=== PATIENT | female | born 1980 | race Asian ===

== ENCOUNTER 2024-07-14 10:25 | Emergency (ER) | payer OTHER, SELFPAY ==
[2024-07-14 10:27] VITALS: BP 127/82
--- NOTE | 2024-07-14 11:05 | ED.MUSCINJ ---
HPI-Injury
General
Chief Complaint: Extremity Pain (non-traumatic)
Source: patient
Exam Limitations: none
Time Seen by Provider: 07/14/24 11:05
Nursing documentation reviewed up to this point in time: agreed with
History of Present Illness-Injury
Initial Injury comments:
43 yo female presents for left lower back pain and pain radiating down buttock to thigh, worsening over the past 4 days. Tylenol did not help, Ibuprofen, little help. No recollection of overuse or injury.
Denies fever, saddle numbness, loss of bowel or bladder control or weakness in legs.
Past History
Past History
ED Past Medical History: None
ED Past Surgical History: None
Social History
Tobacco: Non-smoker
Alcohol: None
Personal:
Living: with family
Employment: Not employed
Review of Systems
Review of Systems
Allergies reviewed?: Yes
All Other Systems: ROS reviewed and negative except as documented in HPI and ROS
Constitutional: Denies fever
Respiratory: Denies trouble breathing
Cardiac: Denies chest pain
ABD/GI: Denies abdominal pain or nausea
: Denies dysuria, frequency, incontinence or difficulty voiding
Musculoskeletal: Reports back pain (low back)
Skin: Reports no symptoms
Neurological: Reports other (pain radiates to buttock and outer thigh); Denies weakness or numbness
Phy Exam
Physical Exam
Physical Exam:
GENERAL: No acute distress. A&Ox3.
CONSTITUTIONAL: Afebrile.
EYES: clear, conjunctivae normal
ENMT: moist mucus membranes
RESPIRATORY: Regular respirations, nonlabored, lungs clear.
CARDIOVASCULAR: Regular rate and rhythm, no murmurs, no rubs.
GI: Soft, nontender, normal BS
MUSCULOSKELETAL: Tender to palpate left lower back ST and mid buttock. No spinal bony tenderness. Full ROM of spine with pain aggravated with twisting torso to affected side. Normal forward flexion. Moves with ease. Well perfused.
SKIN: Warm, dry, normal
PSYCH: Normal mood and affect. Well kept, interactive and appropriate
NEUROLOGIC: Awake, alert and oriented. No focal neurological deficits. Strength equal throughout, ambulates with steady gait.
Injury Course
Orders/Labs/Results
Orders:
Orders
07/14/24 11:13
Dexamethasone [Decadron] 10 mg PO NOW STA
Ketorolac [Toradol] 30 mg IM NOW STA
MDM/Problems Addressed
Differential Diagnosis Includes:
Sciatica, low back strain
MDM/Problems Addressed:
43 yo female presents for left lower back pain and pain radiating down buttock to thigh, worsening over the past 4 days. Tylenol did not help, Ibuprofen, little help. No recollection of overuse or injury.
Denies fever, saddle numbness, loss of bowel or bladder control or weakness in legs.
Pt ambulated down long hallway with slow but steady gait.
No sign of cauda equina
Exam is consistent with left low back pain with sciatica. Patient does not want to lay on stretcher due to discomfort, this is reasonable as further evaluation will not change treatment
Rx for Flexeril, prednisone taper sent to her pharmacy
*Critical Care Note
Total Time (30-74mins, 75-104mins- exclusive of procedures): Not Applicable
ED Attending Note
-
Portions of this chart may have been created with voice recognition software.� Occasional wrong word or��sound alike� substitutions may have occurred due to the inherent limitations of voice recognition software.
Discharge Plan
Departure
Patient Disposition: Home (Routine Discharge)
Date of Disposition: 07/14/24
Time of Disposition: 11:14
Patient with high blood pressure during this ER visit?: No
Condition: Good
Discharge Problem:
Acute left-sided back pain with sciatica
Instructions: Sciatica ED, Exercises for sciatic pain, Low back pain - ED discharge instructions
Prescriptions:
New
prednisone 10 mg Tablet
See Rx Instructions .ROUTE .COMPLEX Qty: 30 0RF
Rx Instructions:
Take By Mouth:
40 mg daily x3 days, 30 mg daily x3 days,
20 mg daily x3 days, 10 mg daily x3 days.
cyclobenzaprine 10 mg tablet
10 mg PO BID PRN (Reason: back pain) Qty: 10 0RF
Referrals:
Your, primary care provider [Other] - As needed
Activity Restrictions/Additional Instructions:
As we discussed, you have sciatica.
May continue Tylenol or ibuprofen as needed for pain
I sent a prescription for prednisone taper to your pharmacy, started tomorrow as you were given a dose of steroid here today
The Flexeril is a muscle relaxant and can make you sleepy and slow the reflexes so do not drive or operate any machinery within 8 hours of taking it.
You may take ibuprofen, Flexeril together if needed
See your doctor next week if you are not much improved by then
I provided you with a list of exercises you can do for sciatica
Interventions
Interventions:
*Nursing Disposition Last Done: 07/14/24 11:51
ED-Skin Assessment Last Done: 07/14/24 10:30
ED-Musculoskeletal Assessment Last Done: 07/14/24 10:30
Discharge Date and Time
Discharge Date/Time: 07/14/24 11:51
Print Language: FRENCH
[2024-07-14] MEDS: DECADRON 10 MG PO (11:37)
[2024-07-14] MEDS: TORADOL 30 MG IM (11:38)
== END 2024-07-14 11:51 | disposition home or self-care (01) ==
LOC: EMR 10:25
PROVIDERS: EMERGENCY PHYSICIAN Student in an Organized Health Care Education/Training Program
DX: M54.42 Lumbago with sciatica, left side (principal)
CPT/HCPCS: 99284; 96372